=== PATIENT | female | born 2000 | race Caucasian/White ===

== ENCOUNTER 2022-07-07 22:57 | Emergency (ER) | payer BC, SELFPAY ==
[2022-07-07 22:59] VITALS: BP 149/101; PULSE 101; RESP 14; TEMP 36; O2SAT 96; BMI 31.8
--- NOTE | 2022-07-08 00:14 | ED.VIS.DENTA ---
HPI History of Present Illness Chief Complaint: Dental Informant: patient Onset/Context/Timing Onset: Days (4) Context: Gradual Onset Timing: Continuous Quality: aching/throbbing Location: R maxillary incisor Current Severity: Moderate Maximum Severity: Severe Worsened by: eating Relieved by: NSAIDs (partially, temporarily) Narrative Narrative: Patient states she had a traumatic chipped tooth several months ago, started hurting her chest 4 days ago and is continued to get worse, radiating pain up toward the right paranasal maxilla. No discharge, foul taste, bleeding, fevers or chills. No other injuries. Has an appointment for a dentist within the next couple weeks. PFSH PFS Medical History no medical history no medical history Home Medications amoxicillin 500 mg tablet 500 mg PO TID #30 tabs 07/08/22 [Rx Last Taken Unknown] Allergy/AdvReac Type Severity Reaction Status Date / Time No Known Allergies Allergy Verified 07/07/22 22:58 Social History Smoking Status: Never smoker ROS ROS ED Constitutional Constitutional ED: Denies chills or fever(s) Eyes Eyes: Denies change in vision or double vision ENT ENT ED: Reports dental pain; Denies sinus pain or throat swelling Cardiovascular Cardiovascular: Denies chest pain or palpitations Respiratory/Chest Respiratory/Chest: Denies cough or dyspnea Integumentary Denies abscess or rash Neurologic Neurologic: Denies headache(s), paresthesias or weakness EXAM Physical Exam Const Vital Signs: 07/07/22 22:59 Temperature 96.8 F L Temperature Source Temporal Pulse Rate 101 H Respiratory Rate 14 Blood Pressure 149/101 H Blood Pressure Mean 117 Pulse Ox 96 Oxygen Delivery Method Room Air Positive well nourished and well developed General Appearance ED: well developed and NAD HEENT HEENT Narrative: Minor Tran 1 fracture to tooth #8, which is otherwise normal-appearing except for plaque that is present on other teeth, and it is tender. Minor tenderness supraperiosteal area without any gingival abnormality, bleeding, or abscess. No external facial swelling or fluctuance/abscess/erythema. No trismus. Normal tongue. Face and Sinus: sinuses nontender Throat: posterior oropharynx normal Eyes PERRL and EOMs intact bilaterally Neck no lymphadenopathy and supple Resp normal respiratory effort Neuro oriented x3 and CN's II-XII intact bilaterally Sensorium / Orientation: alert Gait (Neuro): normal gait Psych mental status grossly normal and thought process normal Skin no rashes or lesions noted and no wounds MDM MDM MDM Narrative Medical decision making narrative: AndIs possible patient is developing a dental infection but there is objectively no signs of anything abnormal except for the small Tran 1 fracture. The follow-up is encouraged, I will place her on an antibiotic give her a dose of [place] here tonight, prescribing an antibiotic and encouraging her to continue Tylenol and ibuprofen as needed. She is comfortable with that plan. Discharge Plan Triage Chief Complaint: Dental ED Provider: Ede Charles Dx/Rx/DC Orders Clinical Impression: Odontalgia, Fracture of tooth Instructions: ED Dental Pain Prescriptions: New amoxicillin 500 mg tablet 500 mg PO TID Qty: 30 0RF Referrals: Dentist,Your [STAFF PHYSICIAN] - As soon as possible Disposition Disposition: Home, Self Care
[2022-07-08] MEDS: AMOXICILLIN 500 MG CAPSULE PO (00:19)
[2022-07-08] MEDS: HYDROcodone Bitartrate/Apap 5/325 Tablet PO (00:19)
== END 2022-07-08 00:45 | disposition home or self-care (01) ==
LOC: ED 07-08 00:27
PROVIDERS: Emergency Provider Emergency Medicine; PCP Preventive Medicine Occupational Medicine; Visit Provider Emergency Medicine
DX: S02.5XXA Fracture of tooth (traumatic), initial encounter for closed fracture (principal); X58.XXXA Exposure to other specified factors, initial encounter
CPT/HCPCS: 99283